=== PATIENT | male | born 1965 | race Hispanic/Latino ===

== ENCOUNTER 2024-07-23 15:45 | Outpatient (CLI) | payer OTHER | END 2024-07-23 15:46 | disposition home or self-care (01) | LOC: CSHRAD 15:45 | PROVIDERS: ATTEND Family Medicine Sports Medicine | DX: R07.81 Pleurodynia (principal); R93.7 Abnormal findings on diagnostic imaging of other parts of musculoskeletal system | CPT/HCPCS: 71046 ==